=== PATIENT | male | born 1960 | race Caucasian/White ===

== ENCOUNTER 2017-04-04 17:51 | Emergency (ER) | payer OTHER ==
[2017-04-04 18:09] VITALS: BP 133/90; PULSE 88; RESP 18; TEMP 98.8; O2SAT 93
--- NOTE | 2017-04-04 18:37 | EDPHY ---
H & P Time Seen by Provider: 04/04/17 18:21 HPI/ROS: This patient was exposed to his [id number] with strep throat a few days ago now has mild sore throat 2/10 intensity that worsens when he swallows. No other exacerbating factors. He is concerned about the symptoms because he will be leaving town on business trip in a day and half and would like to start antibiotics. ROS: No fevers or chills no other constitutional symptoms. HEENT: No nasal congestion. No ear pain. No dysphonia. Pulmonary: No cough GI: No vomiting Integumentary: No skin rash Musculoskeletal: No arthralgias. 7 point ROS is otherwise negative Past Medical/Surgical History: Otherwise healthy Smoking Status: Never smoked Physical Exam: Physical Exam Vital signs are normal. General: No acute distress HEENT: Nose: Clear bilaterally. No sinus tenderness to percussion. Ears: External canals and tympanic membranes are clear with no erythema or abnormal findings bilaterally. Oropharynx: No erythema or exudates. No dysphonia. No drooling or stridor. Eyes: Pupils equal and react to light. Extraocular motions are intact. Neck: Supple with no meningismus. No lymphadenopathy Lungs: Clear to auscultation bilaterally with no rales, rhonchi or wheeze. No respiratory distress. Cardiac: Regular rate and rhythm with no murmur gallop or rub Skin: No rash or pallor. Neuro: Alert with no focal deficits noted. Initial differential diagnosis: Strep exposure, strep pharyngitis, viral pharyngitis, anxiety with somatic symptoms Constitutional: Initial Vital Signs Temperature (C) 37.1 C 04/04/17 18:07 Heart Rate 88 04/04/17 18:07 Respiratory Rate 18 04/04/17 18:07 Blood Pressure 133/90 H 04/04/17 18:07 O2 Sat (%) 93 04/04/17 18:07 O2 Delivery Mode Room Air Allergies/Adverse Reactions: No Known Allergies Allergy (Unverified 04/04/17 18:05) Home Medications: Medication Instructions Recorded Latanoprost 04/04/17 Losartan Potassium 04/04/17 Penicillin V Potassium [Pen Vk 500 mg PO BID #20 tab 04/04/17 500mg (*)] TIMOPTIC 0.25% (*) 04/04/17 MDM/Departure - MDM Diagnostics: Rapid strep is negative. DNA strep is pending. Medications Given: Discontinued Medications Penicillin V Potassium (Pen Vk 250 Mg Prepack#6) 1 btl TAKEHOME EDNOW ONE PRN Reason: Protocol Stop: 04/04/17 19:28 Last Admin: 04/04/17 19:31 Dose: 1 btl - Depart Disposition: Home, Routine, Self-Care Clinical Impression: Exposure to strep throat Condition: Good Instructions: Pharyngitis (ED) Additional Instructions: Diagnosis: Pharyngitis Plan: Penicillin antibiotic If the DNA strep test is also negative, no need to continue the penicillin. Return for any significant worsening despite the treatment plan Prescriptions: Penicillin V Potassium [Pen Vk 500mg (*)] 500 mg PO BID #20 tab Referrals: Anat Lyle MD [Primary Care Provider] - As per Instructions
[2017-04-04] MEDS ORDERED: PENICILLIN VK 250MG PREPACK#6 BTL TAKEHOME ONE (19:27)
== END 2017-04-04 18:43 | disposition home or self-care (01) ==
LOC: CED 17:51
DX: J02.9 Acute pharyngitis, unspecified (principal); Z20.818 Contact with and (suspected) exposure to other bacterial communicable diseases
CPT/HCPCS: 87880-PO